=== PATIENT | female | born 1945 ===

== ENCOUNTER 2023-11-13 | Inpatient (IN) ==
[2023-11-13] MEDS: Ondansetron 4 mg VIAL 2 MG/ML 2 ml VIAL IV ONE (00:22)
[2023-11-13] MEDS: Morphine 4 MG/ML VIAL (1 ml) IV ONE ×3 (00:45→05:22)
[2023-11-13] MEDS: Acetaminophen IV 1 GM/100ML 1,000 MG/100 ML BAG IV ONE (00:45)
[2023-11-13 00:48] LABS: Hematocrit 34.3 % (35-45); Hemoglobin 11.2 g/dL (11.5-14.3); Mean Corpuscular Hgb Conc 32.6 g/dL (31-36); Mean Corpuscular Volume 88.9 fL (80-97); Mean Platelet Volume 7.7 fL (7.5-11.2); Platelet Count 417 10^3/uL (150-450); Red Blood Count 3.85 10^6/uL (3.63-4.92); Red Cell Distribution Width 14.9 % (12-17); White Blood Count 22.2 10^3/uL (3.8-11.8)
[2023-11-13 01:01] LABS: Activated Partial Thrombo Time 22.1 seconds (26.0-38.0); INR 1.1 (0.83-1.13)
[2023-11-13] MEDS: Cefepime 2 GM in Dextrose 2 GM/50 ML BAG IV ONE (01:08)
[2023-11-13 01:10] LABS: ABS Basophils 0.1 10^3/uL (0.0-0.1); ABS Lymphocytes 2.8 10^3/uL (1.0-4.8); ABS Monocytes 0.3 10^3/uL (0.0-0.9); ABS Neutrophils 18.9 10^3/uL (1.5-7.6); ABS Nucleated RBC 0.01 10^3/ul; Eosinophil % 0.2 %; Lymphocyte % 12.5 %; Nucleated Red Blood Cells % 0.1 %/100WBC (0.0-0.8)
[2023-11-13] MEDS: metroNIDAZOLE IV 500 MG/100ML 500 MG/100 ML BAG IVPB ONE (01:12)
[2023-11-13] MEDS: Lactated Ringers SEPSIS* BAG 1,430 ML IV ONE (01:14)
[2023-11-13 01:33] LABS: Albumin 3.3 g/dL (3.2-5.2); C Reactive Protein 41.23 mg/L (<8.01); Calcium 8.4 mg/dL (8.6-10.3); Creatinine, Serum 1.6 mg/dL (0.51-0.95); Globulin 3.2 g/dL (2-4); Potassium 4.4 mmol/L (3.5-5.0); Total Bilirubin 0.3 mg/dL (0.2-1.0); Total Protein 6.5 g/dL (6.4-8.9); eGFR CKD-EPI 32.4 (>60)
[2023-11-13] MEDS: Vancomycin 750 MG in NS 0.9% 250 ml 250 ML IVPB ONE (01:53)
[2023-11-13 02:16] LABS: High Sensitivity Troponin 1 Hr 19 pg/mL (<15)
[2023-11-13] MEDS: Iodixanol (CONTRAST) 320 MG/ML 100 ML SDV IV ONE (02:49)
[2023-11-13] MEDS: Famotidine IV 10 MG/ML 2 ml VIAL (20 mg) IV SLOW PU ONE (03:50)
[2023-11-13 04:04] LABS: Urine Appearance Clear; Urine Bacteria Absent /HPF (Absent); Urine Bilirubin Negative (Negative); Urine Blood 2+ (Negative); Urine Color Yellow; Urine Glucose Trace (Negative); Urine Ketones Trace (Negative); Urine Nitrite Negative (Negative); Urine Protein 2+ (>=100 mg/dL) (Negative); Urine Red Blood Cell 3+(>10/hpf) /HPF (0-Trace); Urine Specific Gravity >1.050 (1.002-1.030); Urine Squamous Epithelial Cell Present /HPF (Absent); Urine Urobilinogen Negative (Negative); Urine White Blood Cell Trace(0-5/hpf) /HPF (0-Trace)
[2023-11-13] MEDS: Lactated Ringers 1000 ml BAG 1,000 ML IV ONE (05:22)
[2023-11-13] MEDS ORDERED: Propofol 10 MG/ML 20 ML BTL ONE (06:34)
[2023-11-13] MEDS ORDERED: Succinylcholine 200 mg VIAL 20 mg/ml 10 ml VIAL (200 mg) ONE (06:34)
[2023-11-13] MEDS ORDERED: Phenylephrine IV 10 MG/ML 1 ml VIAL ONE (06:34)
[2023-11-13] MEDS ORDERED: Bupivacaine 0.25% SDV 30 ML ONE (06:37)
[2023-11-13] MEDS ORDERED: Rocuronium 50 mg VIAL 10 mg/ml 5 ml VIAL (50 mg) ONE ×2 (07:09→08:03)
[2023-11-13] MEDS ORDERED: fentaNYL 250 mcg/5 ml 50 MCG/ML 5 ml VIAL (250 MCG) ONE (07:10)
[2023-11-13] MEDS ORDERED: fentaNYL 100 mcg/2 ml 50 MCG/ML VIAL ONE (07:11)
[2023-11-13] MEDS ORDERED: Dexamethasone IV 4 MG/ML VIAL 1 ml VIAL ONE (08:30)
[2023-11-13] MEDS ORDERED: Ondansetron 4 mg VIAL 2 MG/ML 2 ml VIAL ONE (08:30)
[2023-11-13] MEDS ORDERED: Zosyn per Pharmacy NOTE FOLLOW UP SCH (11:00)
[2023-11-13] MEDS: D5W 1/2 NS 1000 ml BAG 1,000 ML IV SCH (11:40)
[2023-11-13] MEDS: ZOSYN 3.375 GM x ONE DOSE over 30 miuntes IV (11:52)
[2023-11-13] MEDS: Pantoprazole 80 mg in NS BAG 80 MG/250 ML BAG IV SCH (12:25)
[2023-11-13] MEDS: D5LR 1000 ml BAG 1,000 ML IV SCH (12:29)
[2023-11-13 12:43] LABS: ABS Lymphocytes 0.4 10^3/uL (1.0-4.8); ABS Monocytes 0.2 10^3/uL (0.0-0.9); ABS Neutrophils 5.5 10^3/uL (1.5-7.6); ABS Nucleated RBC 0.01 10^3/ul; Eosinophil % 0.1 %; Hematocrit 34.4 % (35-45); Hemoglobin 11.4 g/dL (11.5-14.3); Lymphocyte % 5.8 %; Mean Corpuscular Hemoglobin 29.8 pg (27-33); Mean Corpuscular Hgb Conc 33.3 g/dL (31-36); Mean Corpuscular Volume 89.6 fL (80-97); Mean Platelet Volume 7.9 fL (7.5-11.2); Nucleated Red Blood Cells % 0.2 %/100WBC (0.0-0.8); Platelet Count 325 10^3/uL (150-450); Red Blood Count 3.84 10^6/uL (3.63-4.92); White Blood Count 6.1 10^3/uL (3.8-11.8)
[2023-11-13 13:07] LABS: Calcium 6.8 mg/dL (8.6-10.3); Creatinine, Serum 1.36 mg/dL (0.51-0.95); Potassium 5.1 mmol/L (3.5-5.0); eGFR CKD-EPI 39.4 (>60)
[2023-11-13] MEDS ORDERED: Dextrose 50% Syringe 50 ml 25 GM/50 ML SYRINGE IV PUSH PRN (17:01)
[2023-11-13] MEDS: ZOSYN 3.375 GM Q8H per EXTENDED INFUSION IV SCH (17:15)
[2023-11-13] MEDS: Morphine 4 MG/ML VIAL (1 ml) IV PRN ×2 (17:23→19:24)
[2023-11-13] MEDS: Lactated Ringers 1000 ml BAG 1,000 ML IV SCH (17:50)
[2023-11-13] MEDS: Lactated Ringers 1000 ml BAG 500 ML IV SCH (17:56)
[2023-11-13 23:58] LABS: ABS Lymphocytes 0.7 10^3/uL (1.0-4.8); ABS Monocytes 0.2 10^3/uL (0.0-0.9); ABS Neutrophils 12.5 10^3/uL (1.5-7.6); ABS Nucleated RBC 0.01 10^3/ul; Hematocrit 38.4 % (35-45); Hemoglobin 12.7 g/dL (11.5-14.3); Lymphocyte % 5.2 %; Mean Corpuscular Hemoglobin 29.5 pg (27-33); Mean Corpuscular Hgb Conc 33.1 g/dL (31-36); Mean Corpuscular Volume 89.4 fL (80-97); Mean Platelet Volume 8.4 fL (7.5-11.2); Nucleated Red Blood Cells % 0.1 %/100WBC (0.0-0.8); Platelet Count 324 10^3/uL (150-450); White Blood Count 13.5 10^3/uL (3.8-11.8)
[2023-11-14 00:31] LABS: Albumin 2.5 g/dL (3.2-5.2); C Reactive Protein 246.21 mg/L (<8.01); Calcium 7.7 mg/dL (8.6-10.3); Creatinine, Serum 1.79 mg/dL (0.51-0.95); Globulin 2.5 g/dL (2-4); Magnesium 1.5 mg/dL (1.9-2.7); Phosphorus 4.6 mg/dL (2.5-5.0); Potassium 6.2 mmol/L (3.5-5.0); Total Bilirubin 0.5 mg/dL (0.2-1.0); eGFR CKD-EPI 28.3 (>60)
[2023-11-14] MEDS: D5W 1/2 NS 1000 ml BAG 1,000 ML IV ONE (00:39)
[2023-11-14] MEDS: Dextrose 50% Syringe 50 ml 25 GM/50 ML SYRINGE IV PUSH ONE (01:14)
[2023-11-14] MEDS: Magnesium Sulf 4 GM/100 ML IV 4,000 MG/100 ML BAG IVPB ONE (01:18)
[2023-11-14] MEDS: Calcium Gluconate 1 GM/10 ML VIAL (in Pyxis) IV PUSH ONE (01:19)
[2023-11-14 02:40] LABS: PCO2 Arterial 46 mmHg (35-45); PO2 Arterial 134 mmHg (80-100)
[2023-11-14 03:45] LABS: Calcium 7.5 mg/dL (8.6-10.3); Creatinine, Serum 1.85 mg/dL (0.51-0.95); Potassium 5.8 mmol/L (3.5-5.0); eGFR CKD-EPI 27.2 (>60)
[2023-11-14] MEDS ORDERED: NORMOSOL-R pH 7.4 1000 mL BAG 1,000 ML IV SCH (04:00)
[2023-11-14] MEDS: Norepinephrine 4 MG/250mL D5W 4,000 MCG/250 ML BAG IV SCH (04:35)
[2023-11-14] MEDS: Albumin Human 25% 25 GM/100 ML BTL IV ONE ×2 (08:39→08:48)
[2023-11-14] MEDS: Furosemide 40 mg/4 ml IV VIAL IV ONE (08:48)
[2023-11-14 11:21] LABS: Hematocrit 27.5 % (35-45); Hemoglobin 9.1 g/dL (11.5-14.3); Mean Corpuscular Hemoglobin 29.8 pg (27-33); Mean Corpuscular Hgb Conc 33.2 g/dL (31-36); Mean Corpuscular Volume 89.7 fL (80-97); Mean Platelet Volume 8.4 fL (7.5-11.2); Platelet Count 217 10^3/uL (150-450); Red Blood Count 3.07 10^6/uL (3.63-4.92); White Blood Count 12.9 10^3/uL (3.8-11.8)
[2023-11-14 12:01] LABS: Albumin 2.8 g/dL (3.2-5.2); Albumin/Globulin Ratio 1.6 (1-3); Calcium 7.6 mg/dL (8.6-10.3); Creatinine, Serum 1.95 mg/dL (0.51-0.95); Globulin 1.8 g/dL (2-4); Magnesium 2.7 mg/dL (1.9-2.7); Potassium 5.3 mmol/L (3.5-5.0); Total Bilirubin 0.5 mg/dL (0.2-1.0); Total Protein 4.6 g/dL (6.4-8.9); eGFR CKD-EPI 25.6 (>60)
[2023-11-14 12:16] LABS: ABS Lymphocytes 0.7 10^3/uL (1.0-4.8); ABS Monocytes 0.4 10^3/uL (0.0-0.9); ABS Neutrophils 11.9 10^3/uL (1.5-7.6); ABS Nucleated RBC 0.01 10^3/ul; Lymphocyte % 5.4 %; Nucleated Red Blood Cells % 0.1 %/100WBC (0.0-0.8); RBC Morphology Normal (Normal)
[2023-11-14 14:16] LABS: ABS Eosinophils 0.1 10^3/uL (0.0-0.5); ABS Lymphocytes 0.5 10^3/uL (1.0-4.8); ABS Monocytes 0.3 10^3/uL (0.0-0.9); ABS Neutrophils 11.9 10^3/uL (1.5-7.6); ABS Nucleated RBC 0.01 10^3/ul; Eosinophil % 0.6 %; Hematocrit 27.4 % (35-45); Hemoglobin 9.2 g/dL (11.5-14.3); Lymphocyte % 4.1 %; Mean Corpuscular Hemoglobin 29.5 pg (27-33); Mean Corpuscular Hgb Conc 33.6 g/dL (31-36); Mean Corpuscular Volume 87.9 fL (80-97); Mean Platelet Volume 8.4 fL (7.5-11.2); Nucleated Red Blood Cells % 0.1 %/100WBC (0.0-0.8); Platelet Count 226 10^3/uL (150-450); Red Blood Count 3.12 10^6/uL (3.63-4.92); Red Cell Distribution Width 14.8 % (12-17); White Blood Count 12.8 10^3/uL (3.8-11.8)
[2023-11-14] MEDS: Heparin 5000 UNITS/ML 1 mL VIAL SUBCUT SCH (14:29)
[2023-11-14] MEDS: ZOSYN 3.375 GM Q8H per EXTENDED INFUSION IV SCH (20:07)
[2023-11-15 04:27] LABS: Hematocrit 25.2 % (35-45); Hemoglobin 8.6 g/dL (11.5-14.3); Mean Corpuscular Hemoglobin 29.6 pg (27-33); Mean Corpuscular Volume 87.3 fL (80-97); Mean Platelet Volume 8.1 fL (7.5-11.2); Platelet Count 208 10^3/uL (150-450); Red Blood Count 2.89 10^6/uL (3.63-4.92); Red Cell Distribution Width 15.1 % (12-17); White Blood Count 11.2 10^3/uL (3.8-11.8)
[2023-11-15 04:44] LABS: Albumin 2.5 g/dL (3.2-5.2); Albumin/Globulin Ratio 1.2 (1-3); Calcium 7.8 mg/dL (8.6-10.3); Creatinine, Serum 2.01 mg/dL (0.51-0.95); Globulin 2.1 g/dL (2-4); Magnesium 2.1 mg/dL (1.9-2.7); Total Bilirubin 0.5 mg/dL (0.2-1.0); Total Protein 4.6 g/dL (6.4-8.9); eGFR CKD-EPI 24.6 (>60)
[2023-11-15 06:06] LABS: ABS Lymphocytes 0.6 10^3/uL (1.0-4.8); ABS Monocytes 0.3 10^3/uL (0.0-0.9); ABS Neutrophils 10.3 10^3/uL (1.5-7.6); ABS Nucleated RBC 0.01 10^3/ul; Eosinophil % 0.1 %; Nucleated Red Blood Cells % 0.1 %/100WBC (0.0-0.8); RBC Morphology Normal (Normal)
[2023-11-15] MEDS ORDERED: Albuterol 0.5% CONC CONTINUOUS NEB.SOL 5 mg/ml 20 ml BOT INH SCH (08:00)
[2023-11-15] MEDS: Albuterol 2.5mg/3 ml (0.083%) NEB.SOLN INH ONE (08:34)
[2023-11-15] MEDS: Lactated Ringers 1000 ml BAG 1,000 ML IV SCH (10:20)
[2023-11-15] MEDS: Albumin Human 25% 25 GM/100 ML BTL IV ONE (10:21)
[2023-11-15] MEDS: Albuterol 2.5mg/3 ml (0.083%) NEB.SOLN INH PRN (15:20)
[2023-11-15] MEDS: Acetaminophen IV 1 GM/100ML 1,000 MG/100 ML BAG IV PRN (16:57)
[2023-11-15] MEDS: Pantoprazole VIAL 40 MG VIAL IV SCH (19:52)
[2023-11-15 23:03] LABS: Venous Bicarbonate HCO3 24.5 mmol/L (24-28)
[2023-11-16 04:54] LABS: Hematocrit 23.1 % (35-45); Mean Corpuscular Hemoglobin 30.1 pg (27-33); Mean Corpuscular Hgb Conc 34.5 g/dL (31-36); Mean Corpuscular Volume 87.2 fL (80-97); Mean Platelet Volume 8.4 fL (7.5-11.2); Platelet Count 184 10^3/uL (150-450); Red Blood Count 2.65 10^6/uL (3.63-4.92); White Blood Count 10.4 10^3/uL (3.8-11.8)
[2023-11-16 05:27] LABS: ABS Basophils 0.1 10^3/uL (0.0-0.1); ABS Lymphocytes 0.5 10^3/uL (1.0-4.8); ABS Monocytes 0.2 10^3/uL (0.0-0.9); ABS Neutrophils 9.6 10^3/uL (1.5-7.6); ABS Nucleated RBC 0.03 10^3/ul; Dohle Bodies Present; Eosinophil % 0.2 %; Lymphocyte % 4.6 %; Nucleated Red Blood Cells % 0.3 %/100WBC (0.0-0.8); RBC Morphology Normal (Normal)
[2023-11-16 05:39] LABS: Albumin 2.5 g/dL (3.2-5.2); Albumin/Globulin Ratio 1.3 (1-3); Calcium 7.5 mg/dL (8.6-10.3); Creatinine, Serum 1.34 mg/dL (0.51-0.95); Magnesium 1.9 mg/dL (1.9-2.7); Potassium 4.4 mmol/L (3.5-5.0); Total Bilirubin 0.4 mg/dL (0.2-1.0); Total Protein 4.5 g/dL (6.4-8.9); eGFR CKD-EPI 40.1 (>60)
[2023-11-16] MEDS: Lactated Ringers 1000 ml BAG 1,000 ML IV SCH (09:35)
[2023-11-16] MEDS ORDERED: Sulfur Hexaflouride MICROSPHR 25 MG VIAL ONE (13:32)
[2023-11-16] MEDS: ZOSYN 3.375 GM Q8H per EXTENDED INFUSION IV SCH (15:57)
[2023-11-16] MEDS: Furosemide 20 mg/2 ml IV VIAL IV ONE (17:37)
[2023-11-16 18:50] LABS: Albumin 2.8 g/dL (3.2-5.2); Albumin/Globulin Ratio 1.2 (1-3); Creatinine, Serum 1.13 mg/dL (0.51-0.95); Globulin 2.3 g/dL (2-4); Potassium 4.5 mmol/L (3.5-5.0); Total Bilirubin 0.5 mg/dL (0.2-1.0); Total Protein 5.1 g/dL (6.4-8.9); eGFR CKD-EPI 49.2 (>60)
[2023-11-17 04:47] LABS: Hematocrit 29.7 % (35-45); Hemoglobin 9.6 g/dL (11.5-14.3); Mean Corpuscular Hemoglobin 28.7 pg (27-33); Mean Corpuscular Hgb Conc 32.4 g/dL (31-36); Mean Corpuscular Volume 88.4 fL (80-97); Mean Platelet Volume 8.7 fL (7.5-11.2); Platelet Count 204 10^3/uL (150-450); Red Blood Count 3.36 10^6/uL (3.63-4.92); Red Cell Distribution Width 15.3 % (12-17); White Blood Count 18.1 10^3/uL (3.8-11.8)
[2023-11-17] MEDS: Benzocaine/Butamben/Tetracain (CETACAINE - SINGLE USE) 5 gm TOPICAL ONE (05:10)
[2023-11-17 05:26] LABS: Blood Urea Nitrogen 30 mg/dL (6-24); CO2 Carbon Dioxide 23 mmol/L (22-32); Chloride 104 mmol/L (101-111); Creatinine, Serum 1.31 mg/dL (0.51-0.95); Glucose 69 mg/dL (70-100); Magnesium 1.8 mg/dL (1.9-2.7); Sodium 138 mmol/L (135-145); eGFR CKD-EPI 41.2 (>60)
[2023-11-17 05:28] LABS: Anion Gap 11 mmol/L (2-16)
[2023-11-17 06:16] LABS: ABS Basophils 0.1 10^3/uL (0.0-0.1); ABS Lymphocytes 1.2 10^3/uL (1.0-4.8); ABS Monocytes 0.9 10^3/uL (0.0-0.9); ABS Neutrophils 15.9 10^3/uL (1.5-7.6); ABS Nucleated RBC 0.05 10^3/ul; Eosinophil % 0.2 %; Lymphocyte % 6.4 %; Nucleated Red Blood Cells % 0.3 %/100WBC (0.0-0.8)
[2023-11-17 06:17] LABS: Anisocytosis 1+; Schistocytes 1+; Tear Drop Cells 1+
[2023-11-17] MEDS: Magnesium Sulfate 2 gm BAG 2 GM/50 ML BAG IVPB ONE (06:33)
[2023-11-17] MEDS: Tiotropium Brom/Olodaterol MDI (ACUTE) INH SCH (07:14)
[2023-11-17] MEDS: Magnesium Sulfate IV 1GM/100ML 1 GM/100 ML BAG IV ONE (08:20)
[2023-11-17] MEDS: PPN (PERIPHERAL) 24 HR with D10W 1000 ml BAG 1,000 ML, Amino Acid Infusion 10% 850 ML, ... IV SCH (17:02)
[2023-11-17 20:20] LABS: Urine Appearance Clear; Urine Bilirubin Negative (Negative); Urine Blood 1+ (Negative); Urine Color Light-Yellow; Urine Glucose Negative (Negative); Urine Ketones 2+ (Negative); Urine Nitrite Negative (Negative); Urine Protein Trace (Negative); Urine Specific Gravity 1.024 (1.002-1.030); Urine Urobilinogen Negative (Negative)
[2023-11-17 20:24] LABS: Urine Bacteria Absent /HPF (Absent); Urine Red Blood Cell 3+(>10/hpf) /HPF (0-Trace); Urine Squamous Epithelial Cell Present /HPF (Absent); Urine White Blood Cell Trace(0-5/hpf) /HPF (0-Trace)
[2023-11-18] MEDS ORDERED: Dextrose 50% Syringe 50 ml 25 GM/50 ML SYRINGE IV PUSH PRN ×2 (01:21→10:02)
[2023-11-18 05:20] LABS: Hematocrit 26.8 % (35-45); Mean Corpuscular Hemoglobin 29.4 pg (27-33); Mean Corpuscular Hgb Conc 33.4 g/dL (31-36); Mean Corpuscular Volume 88.2 fL (80-97); Mean Platelet Volume 8.4 fL (7.5-11.2); Platelet Count 158 10^3/uL (150-450); Red Blood Count 3.05 10^6/uL (3.63-4.92); Red Cell Distribution Width 15.5 % (12-17); White Blood Count 14.5 10^3/uL (3.8-11.8)
[2023-11-18 06:02] LABS: ABS Eosinophils 0.1 10^3/uL (0.0-0.5); ABS Lymphocytes 1.1 10^3/uL (1.0-4.8); ABS Monocytes 1.5 10^3/uL (0.0-0.9); ABS Neutrophils 11.5 10^3/uL (1.5-7.6); ABS Nucleated RBC 0.02 10^3/ul; Eosinophil % 0.6 %; Lymphocyte % 7.4 %; Nucleated Red Blood Cells % 0.2 %/100WBC (0.0-0.8); RBC Morphology Normal (Normal)
[2023-11-18 06:04] LABS: ALT 8 U/L (7-52); Albumin 2.5 g/dL (3.2-5.2); Alkaline Phosphatase 53 U/L (35-149); Anion Gap 5 mmol/L (2-16); Blood Urea Nitrogen 31 mg/dL (6-24); CO2 Carbon Dioxide 29 mmol/L (22-32); Calcium 7.9 mg/dL (8.6-10.3); Chloride 107 mmol/L (101-111); Cholesterol 86 mg/dL; Creatinine, Serum 1.05 mg/dL (0.51-0.95); Globulin 2.4 g/dL (2-4); Glucose 202 mg/dL (70-100); Magnesium 2.2 mg/dL (1.9-2.7); Prealbumin 6 mg/dL (18-38); Sodium 141 mmol/L (135-145); Total Bilirubin 0.4 mg/dL (0.2-1.0); Total Protein 4.9 g/dL (6.4-8.9); Triglycerides 217 mg/dL; eGFR CKD-EPI 53.7 (>60)
[2023-11-18] MEDS: Labetalol IV 5 MG/ML 20 ml VIAL IV PUSH ONE (07:14)
[2023-11-18 11:54] LABS: Potassium, Whole Blood 3.7 mmol/L (3.4-4.5)
[2023-11-18 12:28] LABS: Calcium 7.7 mg/dL (8.6-10.3); Creatinine, Serum 1.01 mg/dL (0.51-0.95); Phosphorus 2.3 mg/dL (2.5-5.0); Potassium 4.1 mmol/L (3.5-5.0); eGFR CKD-EPI 56.3 (>60)
[2023-11-18] MEDS: Sodium Phosphate IV 30 MMOL in NS 0.9% 250 ml 250 ML IV ONE (13:49)
[2023-11-18] MEDS: Labetalol IV 5 MG/ML 20 ml VIAL IV PUSH PRN (17:11)
[2023-11-18] MEDS: Albuterol/Ipratropium NEB.SOL (2.5/0.5 MG) 3 ML NEB.SOLN INH PRN (23:54)
[2023-11-19 05:40] LABS: Hematocrit 26.7 % (35-45); Hemoglobin 8.9 g/dL (11.5-14.3); Mean Corpuscular Hemoglobin 29.7 pg (27-33); Mean Corpuscular Hgb Conc 33.4 g/dL (31-36); Mean Corpuscular Volume 88.9 fL (80-97); Mean Platelet Volume 9.4 fL (7.5-11.2); Platelet Count 140 10^3/uL (150-450); Red Blood Count 3.01 10^6/uL (3.63-4.92); Red Cell Distribution Width 15.6 % (12-17); White Blood Count 10.8 10^3/uL (3.8-11.8)
[2023-11-19 06:31] LABS: ALT 7 U/L (7-52); Albumin 2.3 g/dL (3.2-5.2); Albumin/Globulin Ratio 0.9 (1-3); Alkaline Phosphatase 53 U/L (35-149); Anion Gap 5 mmol/L (2-16); Blood Urea Nitrogen 33 mg/dL (6-24); CO2 Carbon Dioxide 28 mmol/L (22-32); Calcium 7.8 mg/dL (8.6-10.3); Chloride 109 mmol/L (101-111); Cholesterol 78 mg/dL; Globulin 2.5 g/dL (2-4); Glucose 170 mg/dL (70-100); Prealbumin 7 mg/dL (18-38); Sodium 142 mmol/L (135-145); Total Bilirubin 0.3 mg/dL (0.2-1.0); Total Protein 4.8 g/dL (6.4-8.9); Triglycerides 178 mg/dL; eGFR CKD-EPI 64.6 (>60)
[2023-11-19 06:33] LABS: ABS Eosinophils 0.3 10^3/uL (0.0-0.5); ABS Lymphocytes 1.1 10^3/uL (1.0-4.8); ABS Monocytes 1.8 10^3/uL (0.0-0.9); ABS Neutrophils 7.6 10^3/uL (1.5-7.6); ABS Nucleated RBC 0.04 10^3/ul; Anisocytosis 1+; Eosinophil % 2.5 %; Hypochromasia 2+; Lymphocyte % 10.5 %; Nucleated Red Blood Cells % 0.4 %/100WBC (0.0-0.8)
[2023-11-19 08:51] LABS: Magnesium 1.9 mg/dL (1.9-2.7); Phosphorus 3.4 mg/dL (2.5-5.0); Potassium Redraw 4.3 mmol/L (3.5-5.0)
[2023-11-20 06:12] LABS: Hemoglobin 8.6 g/dL (11.5-14.3); Mean Corpuscular Hemoglobin 29.2 pg (27-33); Mean Corpuscular Hgb Conc 32.9 g/dL (31-36); Mean Corpuscular Volume 88.5 fL (80-97); Mean Platelet Volume 9.3 fL (7.5-11.2); Platelet Count 169 10^3/uL (150-450); Red Blood Count 2.94 10^6/uL (3.63-4.92); Red Cell Distribution Width 15.6 % (12-17); White Blood Count 12.8 10^3/uL (3.8-11.8)
[2023-11-20 06:37] LABS: Calcium 7.7 mg/dL (8.6-10.3); Creatinine, Serum 0.81 mg/dL (0.51-0.95); Magnesium 1.9 mg/dL (1.9-2.7); Potassium 4.7 mmol/L (3.5-5.0); eGFR CKD-EPI 73.3 (>60)
[2023-11-20] MEDS: TPN 24 HR with Dextrose 50% Water 500 ML, Amino Acid Infusion 10% 850 ML, Sterile Water... CENT\\PICC SCH (16:49)
[2023-11-21 07:38] LABS: Albumin 2.4 g/dL (3.2-5.2); Albumin/Globulin Ratio 0.9 (1-3); Calcium 7.9 mg/dL (8.6-10.3); Creatinine, Serum 0.76 mg/dL (0.51-0.95); Globulin 2.6 g/dL (2-4); Magnesium 1.8 mg/dL (1.9-2.7); Phosphorus 2.8 mg/dL (2.5-5.0); Potassium 4.9 mmol/L (3.5-5.0); Total Bilirubin 0.2 mg/dL (0.2-1.0); eGFR CKD-EPI 79.2 (>60)
[2023-11-21 08:22] LABS: Hematocrit 26.1 % (35-45); Hemoglobin 8.3 g/dL (11.5-14.3); Mean Corpuscular Hemoglobin 28.4 pg (27-33); Mean Corpuscular Hgb Conc 31.9 g/dL (31-36); Mean Corpuscular Volume 89.2 fL (80-97); Mean Platelet Volume 9.9 fL (7.5-11.2); Platelet Count 231 10^3/uL (150-450); Red Blood Count 2.92 10^6/uL (3.63-4.92); Red Cell Distribution Width 15.8 % (12-17); White Blood Count 13.5 10^3/uL (3.8-11.8)
[2023-11-21 08:44] LABS: ABS Eosinophils 0.3 10^3/uL (0.0-0.5); ABS Lymphocytes 1.3 10^3/uL (1.0-4.8); ABS Monocytes 2.1 10^3/uL (0.0-0.9); ABS Neutrophils 9.8 10^3/uL (1.5-7.6); ABS Nucleated RBC 0.06 10^3/ul; Anisocytosis 1+; Eosinophil % 1.9 %; Hypochromasia 1+; Lymphocyte % 9.8 %; Nucleated Red Blood Cells % 0.5 %/100WBC (0.0-0.8); Polychromasia 1+
[2023-11-21] MEDS: Magnesium Sulfate IV 1GM/100ML 1 GM/100 ML BAG IV ONE (09:07)
[2023-11-21] MEDS: Furosemide 20 mg/2 ml IV VIAL IV SLOW PU ONE (12:13)
[2023-11-22 06:12] LABS: Calcium 8.5 mg/dL (8.6-10.3)
[2023-11-22 06:13] LABS: Blood Urea Nitrogen 31 mg/dL (6-24); CO2 Carbon Dioxide 24 mmol/L (22-32); Chloride 108 mmol/L (101-111); Creatinine, Serum 0.81 mg/dL (0.51-0.95); Glucose 963 mg/dL (70-100); Potassium 7.1 mmol/L (3.5-5.0); Sodium 131 mmol/L (135-145); eGFR CKD-EPI 73.3 (>60)
[2023-11-22] MEDS: Insulin GLARGINE 100 un/ml 10 ml VIAL SUBCUT SCH (09:02)
[2023-11-22 12:07] LABS: Hemoglobin 8.1 g/dL (11.5-14.3); Mean Corpuscular Hgb Conc 32.5 g/dL (31-36); Mean Corpuscular Volume 89.4 fL (80-97); Mean Platelet Volume 9.3 fL (7.5-11.2); Platelet Count 343 10^3/uL (150-450); Red Blood Count 2.79 10^6/uL (3.63-4.92); Red Cell Distribution Width 15.5 % (12-17); White Blood Count 15.5 10^3/uL (3.8-11.8)
[2023-11-22 12:35] LABS: ABS Basophils 0.1 10^3/uL (0.0-0.1); ABS Eosinophils 0.2 10^3/uL (0.0-0.5); ABS Lymphocytes 1.2 10^3/uL (1.0-4.8); ABS Neutrophils 11.9 10^3/uL (1.5-7.6); ABS Nucleated RBC 0.09 10^3/ul; Eosinophil % 1.6 %; Nucleated Red Blood Cells % 0.6 %/100WBC (0.0-0.8)
[2023-11-22 12:36] LABS: Anisocytosis 1+; Polychromasia 1+
[2023-11-22 12:54] LABS: Calcium 8.1 mg/dL (8.6-10.3); Creatinine, Serum 0.84 mg/dL (0.51-0.95); Potassium 5.3 mmol/L (3.5-5.0); eGFR CKD-EPI 70.2 (>60)
[2023-11-22] MEDS: Furosemide 40 mg/4 ml IV VIAL IV SLOW PU ONE ×2 (14:05→19:38)
[2023-11-22 15:16] LABS: C Reactive Protein 65.61 mg/L (<8.01)
[2023-11-23 06:37] LABS: Hematocrit 22.7 % (35-45); Hemoglobin 7.4 g/dL (11.5-14.3); Mean Corpuscular Hgb Conc 32.5 g/dL (31-36); Mean Corpuscular Volume 89.5 fL (80-97); Mean Platelet Volume 9.1 fL (7.5-11.2); Platelet Count 377 10^3/uL (150-450); Red Blood Count 2.54 10^6/uL (3.63-4.92); Red Cell Distribution Width 15.4 % (12-17); White Blood Count 14.9 10^3/uL (3.8-11.8)
[2023-11-23 07:02] LABS: Calcium 7.9 mg/dL (8.6-10.3); Creatinine, Serum 0.96 mg/dL (0.51-0.95); Magnesium 1.6 mg/dL (1.9-2.7); eGFR CKD-EPI 59.8 (>60)
[2023-11-23] MEDS: Magnesium Sulfate 2 gm BAG 2 GM/50 ML BAG IVPB ONE (07:49)
[2023-11-23 08:51] LABS: ABS Basophils 0.1 10^3/uL (0.0-0.1); ABS Eosinophils 0.3 10^3/uL (0.0-0.5); ABS Lymphocytes 1.1 10^3/uL (1.0-4.8); ABS Neutrophils 11.5 10^3/uL (1.5-7.6); ABS Nucleated RBC 0.04 10^3/ul; Eosinophil % 1.7 %; Lymphocyte % 7.7 %; Nucleated Red Blood Cells % 0.2 %/100WBC (0.0-0.8); RBC Morphology Normal (Normal)
[2023-11-23] MEDS: Magnesium Sulfate IV 1GM/100ML 1 GM/100 ML BAG IV ONE (10:36)
[2023-11-24] MEDS: Insulin GLARGINE 100 un/ml 10 ml VIAL SUBCUT SCH (09:23)
[2023-11-24 09:30] LABS: Hematocrit 22.4 % (35-45); Hemoglobin 7.4 g/dL (11.5-14.3); Mean Corpuscular Hemoglobin 29.3 pg (27-33); Mean Corpuscular Hgb Conc 32.8 g/dL (31-36); Mean Corpuscular Volume 89.3 fL (80-97); Mean Platelet Volume 8.6 fL (7.5-11.2); Platelet Count 481 10^3/uL (150-450); Red Blood Count 2.51 10^6/uL (3.63-4.92); Red Cell Distribution Width 15.8 % (12-17); White Blood Count 14.4 10^3/uL (3.8-11.8)
[2023-11-24 10:30] LABS: ABS Basophils 0.1 10^3/uL (0.0-0.1); ABS Eosinophils 0.1 10^3/uL (0.0-0.5); ABS Lymphocytes 1.1 10^3/uL (1.0-4.8); ABS Nucleated RBC 0.02 10^3/ul; Eosinophil % 0.8 %; Lymphocyte % 7.5 %; Nucleated Red Blood Cells % 0.2 %/100WBC (0.0-0.8)
[2023-11-24 10:48] LABS: Calcium 7.8 mg/dL (8.6-10.3); Creatinine, Serum 0.78 mg/dL (0.51-0.95); Magnesium 2.2 mg/dL (1.9-2.7); Potassium 5.6 mmol/L (3.5-5.0); eGFR CKD-EPI 76.7 (>60)
[2023-11-24] MEDS: Albuterol 2.5mg/3 ml (0.083%) NEB.SOLN INH PRN (14:09)
[2023-11-24] MEDS: SODIUM ZIRCONIUM CYCLOSILICATE 10 GM PACKET PO SCH (15:09)
[2023-11-25 06:52] LABS: Calcium 7.6 mg/dL (8.6-10.3); Creatinine, Serum 0.73 mg/dL (0.51-0.95); Potassium 5.5 mmol/L (3.5-5.0); eGFR CKD-EPI 83.1 (>60)
[2023-11-25 06:55] LABS: Hematocrit 21.7 % (35-45); Hemoglobin 7.1 g/dL (11.5-14.3); Mean Corpuscular Hemoglobin 29.5 pg (27-33); Mean Corpuscular Hgb Conc 32.6 g/dL (31-36); Mean Corpuscular Volume 90.6 fL (80-97); Mean Platelet Volume 9.2 fL (7.5-11.2); Platelet Count 519 10^3/uL (150-450); Red Blood Count 2.39 10^6/uL (3.63-4.92); White Blood Count 12.7 10^3/uL (3.8-11.8)
[2023-11-25 08:17] LABS: ABS Eosinophils 0.1 10^3/uL (0.0-0.5); ABS Lymphocytes 0.3 10^3/uL (1.0-4.8); ABS Monocytes 1.7 10^3/uL (0.0-0.9); ABS Neutrophils 10.6 10^3/uL (1.5-7.6); ABS Nucleated RBC 0.02 10^3/ul; Anisocytosis 1+; Eosinophil % 0.6 %; Nucleated Red Blood Cells % 0.2 %/100WBC (0.0-0.8); Polychromasia 1+
[2023-11-25] MEDS: Furosemide 40 mg/4 ml IV VIAL IV ONE (11:49)
[2023-11-26 07:35] LABS: Hematocrit 22.9 % (35-45); Hemoglobin 7.4 g/dL (11.5-14.3); Mean Corpuscular Hemoglobin 29.3 pg (27-33); Mean Corpuscular Hgb Conc 32.1 g/dL (31-36); Mean Corpuscular Volume 91.1 fL (80-97); Mean Platelet Volume 9.1 fL (7.5-11.2); Platelet Count 634 10^3/uL (150-450); Red Blood Count 2.51 10^6/uL (3.63-4.92); Red Cell Distribution Width 16.9 % (12-17)
[2023-11-26 08:00] LABS: Creatinine, Serum 0.83 mg/dL (0.51-0.95); Potassium 5.6 mmol/L (3.5-5.0); eGFR CKD-EPI 71.2 (>60)
[2023-11-26] MEDS: Albuterol/Ipratropium NEB.SOL (2.5/0.5 MG) 3 ML NEB.SOLN INH PRN (08:44)
[2023-11-26] MEDS: Furosemide 40 mg/4 ml IV VIAL IV SLOW PU ONE (09:30)
[2023-11-26 09:49] LABS: Venous Bicarbonate HCO3 29.7 mmol/L (24-28)
[2023-11-26] MEDS: SODIUM ZIRCONIUM CYCLOSILICATE 10 GM PACKET PO SCH (10:42)
[2023-11-26 13:17] LABS: Albumin 2.7 g/dL (3.2-5.2); Albumin/Globulin Ratio 0.9 (1-3); Globulin 3.1 g/dL (2-4); Indirect Bilirubin 0.2 mg/dL (0.3-1.0); Total Bilirubin 0.2 mg/dL (0.2-1.0); Total Protein 5.8 g/dL (6.4-8.9)
[2023-11-26 20:18] LABS: Body Fluid Appearance Cloudy; Body Fluid Color Yellow; Body Fluid Source Pleural Fluid
[2023-11-26 20:24] LABS: Body Fluid Total Nucleated 3212 /mcL
[2023-11-26 21:03] LABS: Body Fluid Mono 33 %; Body Fluid Total Cells Counted 200
[2023-11-27 00:05] LABS: Calcium 7.6 mg/dL (8.6-10.3); Creatinine, Serum 0.73 mg/dL (0.51-0.95); eGFR CKD-EPI 83.1 (>60)
[2023-11-27] MEDS: SODIUM ZIRCONIUM CYCLOSILICATE 10 GM PACKET PO SCH (00:43)
[2023-11-27] MEDS ORDERED: hydrALAZINE 20 mg/ml 1 ML Vial IV IV SLOW PU PRN (02:59)
[2023-11-27] MEDS: NS 0.9% 1000 ml BAG 1,000 ML IV ONE (03:45)
[2023-11-27 04:54] LABS: Hematocrit 19.7 % (35-45); Hemoglobin 6.4 g/dL (11.5-14.3); Mean Corpuscular Hemoglobin 29.5 pg (27-33); Mean Corpuscular Hgb Conc 32.6 g/dL (31-36); Mean Corpuscular Volume 90.6 fL (80-97); Mean Platelet Volume 8.5 fL (7.5-11.2); Platelet Count 448 10^3/uL (150-450); Red Blood Count 2.18 10^6/uL (3.63-4.92); Red Cell Distribution Width 16.9 % (12-17)
[2023-11-27 05:24] LABS: ABS Eosinophils 0.1 10^3/uL (0.0-0.5); ABS Lymphocytes 0.6 10^3/uL (1.0-4.8); ABS Monocytes 1.6 10^3/uL (0.0-0.9); ABS Neutrophils 5.6 10^3/uL (1.5-7.6); ABS Nucleated RBC 0.01 10^3/ul; Eosinophil % 1.1 %; Lymphocyte % 8.1 %; Nucleated Red Blood Cells % 0.1 %/100WBC (0.0-0.8)
[2023-11-27 05:25] LABS: AST 19 U/L (13-39)
[2023-11-27 05:26] LABS: ALT 9 U/L (7-52); Albumin 2.2 g/dL (3.2-5.2); Albumin/Globulin Ratio 0.8 (1-3); Alkaline Phosphatase 49 U/L (35-149); Blood Urea Nitrogen 19 mg/dL (6-24); Calcium 7.2 mg/dL (8.6-10.3); Creatinine, Serum 0.69 mg/dL (0.51-0.95); Globulin 2.6 g/dL (2-4); Glucose 84 mg/dL (70-100); Magnesium 1.8 mg/dL (1.9-2.7); Total Bilirubin 0.3 mg/dL (0.2-1.0); Total Protein 4.8 g/dL (6.4-8.9); eGFR CKD-EPI 87.7 (>60)
[2023-11-27 05:28] LABS: Anion Gap 2 mmol/L (2-16); CO2 Carbon Dioxide 32 mmol/L (22-32); Chloride 106 mmol/L (101-111); Sodium 140 mmol/L (135-145)
[2023-11-27 06:21] LABS: Hematocrit 21.2 % (35-45); Hemoglobin 7.2 g/dL (11.5-14.3)
[2023-11-27 11:41] LABS: Mean Platelet Volume 9.8 fL (7.5-11.2); Platelet Count 564 10^3/uL (150-450)
[2023-11-27 11:46] LABS: White Blood Count 10.1 10^3/uL (3.8-11.8)
[2023-11-27 12:35] LABS: .Transferrin 135 mg/dL (203-362); Total Iron Binding Capacity 189 mcg/dL (250-450)
[2023-11-27 13:11] LABS: Hematocrit 21.7 % (35-45); Hemoglobin 7.2 g/dL (11.5-14.3)
[2023-11-27 13:58] LABS: % Iron Saturation 11 % (15-55); .Transferrin 153 mg/dL (203-362); Iron 23 ug/dL (50-212); Total Iron Binding Capacity 214 mcg/dL (250-450); Unsaturated Iron Binding 191 ug/dL
[2023-11-27] MEDS: Furosemide 40 mg/4 ml IV VIAL IV SLOW PU ONE ×2 (15:37→20:21)
[2023-11-27] MEDS: TPN 24 HR with Dextrose 50% Water 500 ML, Amino Acid Infusion 10% 850 ML, Sterile Water... CENT\\PICC SCH (16:58)
[2023-11-27] MEDS ORDERED: Furosemide 40 mg/4 ml IV VIAL IV SLOW PU ONE (22:00)
[2023-11-28 04:51] LABS: Hematocrit 23.4 % (35-45); Hemoglobin 7.7 g/dL (11.5-14.3); Mean Corpuscular Hemoglobin 32.3 pg (27-33); Mean Platelet Volume 9.1 fL (7.5-11.2); Platelet Count 613 10^3/uL (150-450); Red Blood Count 2.39 10^6/uL (3.63-4.92); Red Cell Distribution Width 17.4 % (12-17); White Blood Count 10.2 10^3/uL (3.8-11.8)
[2023-11-28 05:08] LABS: ABS Basophils 0.1 10^3/uL (0.0-0.1); ABS Eosinophils 0.1 10^3/uL (0.0-0.5); ABS Lymphocytes 1.1 10^3/uL (1.0-4.8); ABS Monocytes 2.6 10^3/uL (0.0-0.9); ABS Neutrophils 6.2 10^3/uL (1.5-7.6); ABS Nucleated RBC 0.02 10^3/ul; Eosinophil % 1.2 %; Nucleated Red Blood Cells % 0.2 %/100WBC (0.0-0.8)
[2023-11-28 05:43] LABS: Magnesium 2.1 mg/dL (1.9-2.7)
[2023-11-28 05:44] LABS: Albumin 2.6 g/dL (3.2-5.2); Albumin/Globulin Ratio 0.9 (1-3); Alkaline Phosphatase 57 U/L (35-149); Glucose 869 mg/dL (70-100); Phosphorus 4.4 mg/dL (2.5-5.0); Total Bilirubin < 0.1 mg/dL (0.2-1.0); Total Protein 5.6 g/dL (6.4-8.9)
[2023-11-28 05:46] LABS: ALT 9 U/L (7-52); AST 20 U/L (13-39); Anion Gap 2 mmol/L (2-16); Blood Urea Nitrogen 18 mg/dL (6-24); CO2 Carbon Dioxide 36 mmol/L (22-32); Calcium 9.2 mg/dL (8.6-10.3); Chloride 96 mmol/L (101-111); Creatinine, Serum 0.84 mg/dL (0.51-0.95); Potassium 5.9 mmol/L (3.5-5.0); Sodium 134 mmol/L (135-145); eGFR CKD-EPI 70.2 (>60)
[2023-11-28 09:09] LABS: Albumin 2.7 g/dL (3.2-5.2); Albumin/Globulin Ratio 0.8 (1-3); Calcium 8.6 mg/dL (8.6-10.3); Creatinine, Serum 0.78 mg/dL (0.51-0.95); Globulin 3.3 g/dL (2-4); Potassium 4.4 mmol/L (3.5-5.0); Total Bilirubin 0.2 mg/dL (0.2-1.0); eGFR CKD-EPI 76.7 (>60)
[2023-11-28 13:36] LABS: Lactate Dehydrogenase, BF 319 U/L
[2023-11-28 15:22] LABS: Fluid Type, Protein, Total PLEURAL FLUID; Glucose, BF 79 mg/dL; Total Protein, BF 2.8 g/dL
[2023-11-28] MEDS ORDERED: Zosyn per Pharmacy NOTE FOLLOW UP SCH (18:00)
[2023-11-28] MEDS: ZOSYN 3.375 GM x ONE DOSE over 30 miuntes IV (18:23)
[2023-11-28] MEDS: ZOSYN 3.375 GM Q8H per EXTENDED INFUSION IV SCH (22:06)
[2023-11-29 06:48] LABS: Hematocrit 23.2 % (35-45); Hemoglobin 7.7 g/dL (11.5-14.3); Mean Corpuscular Hemoglobin 29.9 pg (27-33); Mean Corpuscular Hgb Conc 33.1 g/dL (31-36); Mean Corpuscular Volume 90.2 fL (80-97); Mean Platelet Volume 8.5 fL (7.5-11.2); Platelet Count 567 10^3/uL (150-450); Red Blood Count 2.57 10^6/uL (3.63-4.92); Red Cell Distribution Width 17.2 % (12-17); White Blood Count 10.8 10^3/uL (3.8-11.8)
[2023-11-29 07:09] LABS: Albumin 2.7 g/dL (3.2-5.2); Albumin/Globulin Ratio 0.8 (1-3); Calcium 8.5 mg/dL (8.6-10.3); Creatinine, Serum 0.8 mg/dL (0.51-0.95); Globulin 3.2 g/dL (2-4); Magnesium 1.7 mg/dL (1.9-2.7); Phosphorus 3.7 mg/dL (2.5-5.0); Potassium 4.3 mmol/L (3.5-5.0); Total Bilirubin 0.3 mg/dL (0.2-1.0); Total Protein 5.9 g/dL (6.4-8.9); eGFR CKD-EPI 74.4 (>60)
[2023-11-29 07:55] LABS: ABS Basophils 0.1 10^3/uL (0.0-0.1); ABS Eosinophils 0.1 10^3/uL (0.0-0.5); ABS Lymphocytes 0.9 10^3/uL (1.0-4.8); ABS Monocytes 2.2 10^3/uL (0.0-0.9); ABS Neutrophils 7.6 10^3/uL (1.5-7.6); ABS Nucleated RBC 0.01 10^3/ul; Eosinophil % 0.8 %; Lymphocyte % 7.9 %; Nucleated Red Blood Cells % 0.1 %/100WBC (0.0-0.8)
[2023-11-29] MEDS: Magnesium Sulfate 2 gm BAG 2 GM/50 ML BAG IVPB ONE (11:37)
[2023-12-02] MEDS: methylPREDNISolone SOD SUCC 125 mg 2 ML VIAL IV ONE (00:49)
[2023-12-02] MEDS: Furosemide 40 mg/4 ml IV VIAL IV ONE (01:04)
[2023-12-02] MEDS: Furosemide 40 mg/4 ml IV VIAL IV SLOW PU ONE (01:10)
[2023-12-02 01:14] LABS: PO2 Arterial 145 mmHg (80-100)
[2023-12-02 01:16] LABS: PCO2 Arterial 84 mmHg (35-45)
[2023-12-02 01:22] LABS: Hematocrit 22.9 % (35-45); Hemoglobin 7.4 g/dL (11.5-14.3); Mean Corpuscular Hemoglobin 29.4 pg (27-33); Mean Corpuscular Hgb Conc 32.3 g/dL (31-36); Mean Corpuscular Volume 91.1 fL (80-97); Mean Platelet Volume 8.7 fL (7.5-11.2); Platelet Count 557 10^3/uL (150-450); Red Blood Count 2.52 10^6/uL (3.63-4.92); Red Cell Distribution Width 17.4 % (12-17); White Blood Count 14.4 10^3/uL (3.8-11.8)
[2023-12-02 01:30] LABS: ABS Basophils 0.2 10^3/uL (0.0-0.1); ABS Eosinophils 0.2 10^3/uL (0.0-0.5); ABS Lymphocytes 1.8 10^3/uL (1.0-4.8); ABS Monocytes 1.6 10^3/uL (0.0-0.9); ABS Neutrophils 10.7 10^3/uL (1.5-7.6); ABS Nucleated RBC 0.03 10^3/ul; Eosinophil % 1.3 %; Lymphocyte % 12.4 %; Nucleated Red Blood Cells % 0.2 %/100WBC (0.0-0.8)
[2023-12-02 01:48] LABS: Albumin 2.9 g/dL (3.2-5.2); Albumin/Globulin Ratio 0.8 (1-3); Calcium 8.5 mg/dL (8.6-10.3); Creatinine, Serum 0.78 mg/dL (0.51-0.95); Globulin 3.6 g/dL (2-4); Magnesium 1.8 mg/dL (1.9-2.7); Potassium 4.7 mmol/L (3.5-5.0); Total Bilirubin 0.3 mg/dL (0.2-1.0); Total Protein 6.5 g/dL (6.4-8.9); eGFR CKD-EPI 76.7 (>60)
[2023-12-02] MEDS: Magnesium Sulfate 2 gm BAG 2 GM/50 ML BAG IVPB ONE (02:01)
[2023-12-02] MEDS: Albuterol/Ipratropium NEB.SOL (2.5/0.5 MG) 3 ML NEB.SOLN INH SCH (02:29)
[2023-12-02 02:36] LABS: PCO2 Arterial 68 mmHg (35-45); PO2 Arterial 89 mmHg (80-100)
[2023-12-02 02:47] LABS: High Sensitivity Troponin 1 Hr 30 pg/mL (<15)
[2023-12-02 05:37] LABS: ABS Lymphocytes 0.3 10^3/uL (1.0-4.8); ABS Monocytes 0.1 10^3/uL (0.0-0.9); ABS Neutrophils 8.5 10^3/uL (1.5-7.6); ABS Nucleated RBC 0.01 10^3/ul; Eosinophil % 0.1 %; Hematocrit 23.5 % (35-45); Hemoglobin 7.6 g/dL (11.5-14.3); Lymphocyte % 3.1 %; Mean Corpuscular Hemoglobin 29.4 pg (27-33); Mean Corpuscular Hgb Conc 32.4 g/dL (31-36); Mean Corpuscular Volume 90.8 fL (80-97); Mean Platelet Volume 8.7 fL (7.5-11.2); Nucleated Red Blood Cells % 0.1 %/100WBC (0.0-0.8); Platelet Count 479 10^3/uL (150-450); Red Blood Count 2.59 10^6/uL (3.63-4.92); Red Cell Distribution Width 17.1 % (12-17); White Blood Count 8.9 10^3/uL (3.8-11.8)
[2023-12-02 06:29] LABS: CRP High Sensitivity 49.98 mg/L (<2.00); Calcium 8.7 mg/dL (8.6-10.3); Creatinine, Serum 0.8 mg/dL (0.51-0.95); Magnesium 2.4 mg/dL (1.9-2.7); Phosphorus 3.5 mg/dL (2.5-5.0); Potassium 4.4 mmol/L (3.5-5.0); eGFR CKD-EPI 74.4 (>60)
[2023-12-02] MEDS: methylPREDNISolone SOD SUCC 40 mg/ml 1 ml VIAL IV SCH (09:36)
[2023-12-02 11:04] LABS: PCO2 Arterial 59 mmHg (35-45); PO2 Arterial 101 mmHg (80-100)
[2023-12-03 06:19] LABS: ABS Basophils 0.1 10^3/uL (0.0-0.1); ABS Lymphocytes 0.6 10^3/uL (1.0-4.8); ABS Monocytes 1.2 10^3/uL (0.0-0.9); ABS Neutrophils 4.2 10^3/uL (1.5-7.6); Hematocrit 20.1 % (35-45); Hemoglobin 6.6 g/dL (11.5-14.3); Lymphocyte % 9.5 %; Mean Corpuscular Hemoglobin 29.4 pg (27-33); Mean Corpuscular Hgb Conc 32.6 g/dL (31-36); Mean Corpuscular Volume 90.2 fL (80-97); Mean Platelet Volume 8.9 fL (7.5-11.2); Nucleated Red Blood Cells % 0.1 %/100WBC (0.0-0.8); Platelet Count 385 10^3/uL (150-450); Red Blood Count 2.23 10^6/uL (3.63-4.92); Red Cell Distribution Width 16.8 % (12-17); White Blood Count 5.9 10^3/uL (3.8-11.8)
[2023-12-03 07:25] LABS: Calcium 8.5 mg/dL (8.6-10.3); Creatinine, Serum 0.97 mg/dL (0.51-0.95); Potassium 3.8 mmol/L (3.5-5.0); eGFR CKD-EPI 59.1 (>60)
[2023-12-03 12:59] LABS: Hematocrit 21.4 % (35-45)
[2023-12-04 04:46] LABS: Hematocrit 20.6 % (35-45); Hemoglobin 6.8 g/dL (11.5-14.3); Mean Corpuscular Hemoglobin 29.7 pg (27-33); Mean Corpuscular Volume 89.8 fL (80-97); Mean Platelet Volume 8.9 fL (7.5-11.2); Platelet Count 353 10^3/uL (150-450); Red Blood Count 2.29 10^6/uL (3.63-4.92); Red Cell Distribution Width 16.9 % (12-17); White Blood Count 5.6 10^3/uL (3.8-11.8)
[2023-12-04 05:05] LABS: ABS Lymphocytes 0.4 10^3/uL (1.0-4.8); ABS Monocytes 0.3 10^3/uL (0.0-0.9); ABS Neutrophils 4.8 10^3/uL (1.5-7.6); ABS Nucleated RBC 0.01 10^3/ul; Eosinophil % 0.5 %; Lymphocyte % 7.8 %; Nucleated Red Blood Cells % 0.2 %/100WBC (0.0-0.8)
[2023-12-04 05:08] LABS: Calcium 8.3 mg/dL (8.6-10.3); Creatinine, Serum 0.95 mg/dL (0.51-0.95); Magnesium 1.8 mg/dL (1.9-2.7); Phosphorus 2.7 mg/dL (2.5-5.0); Potassium 3.8 mmol/L (3.5-5.0); eGFR CKD-EPI 60.6 (>60)
[2023-12-04 07:34] LABS: Hematocrit 21.2 % (35-45)
[2023-12-04] MEDS: Magnesium Sulfate 2 gm BAG 2 GM/50 ML BAG IVPB ONE (08:24)
[2023-12-05 06:45] LABS: Hematocrit 24.2 % (35-45); Hemoglobin 7.8 g/dL (11.5-14.3); Mean Corpuscular Hgb Conc 32.2 g/dL (31-36); Mean Corpuscular Volume 90.1 fL (80-97); Mean Platelet Volume 9.9 fL (7.5-11.2); Platelet Count 414 10^3/uL (150-450); Red Blood Count 2.69 10^6/uL (3.63-4.92); Red Cell Distribution Width 17.3 % (12-17); White Blood Count 11.4 10^3/uL (3.8-11.8)
[2023-12-05 07:11] LABS: Calcium 8.8 mg/dL (8.6-10.3); Creatinine, Serum 0.81 mg/dL (0.51-0.95); Magnesium 2.1 mg/dL (1.9-2.7); Phosphorus 2.6 mg/dL (2.5-5.0); Potassium 4.1 mmol/L (3.5-5.0); eGFR CKD-EPI 73.3 (>60)
[2023-12-05 08:32] LABS: ABS Basophils 0.1 10^3/uL (0.0-0.1); ABS Monocytes 1.1 10^3/uL (0.0-0.9); ABS Neutrophils 9.3 10^3/uL (1.5-7.6); ABS Nucleated RBC 0.05 10^3/ul; Anisocytosis 1+; Eosinophil % 0.1 %; Hypochromasia 1+; Lymphocyte % 8.6 %; Nucleated Red Blood Cells % 0.4 %/100WBC (0.0-0.8); Polychromasia 1+
[2023-12-05] MEDS: Albuterol/Ipratropium NEB.SOL (2.5/0.5 MG) 3 ML NEB.SOLN INH PRN (10:04)
[2023-12-05] MEDS: methylPREDNISolone SOD SUCC 40 mg/ml 1 ml VIAL IV SCH (20:12)
[2023-12-07] MEDS: hydrALAZINE 20 mg/ml 1 ML Vial IV IV SLOW PU PRN (00:39)
[2023-12-07 05:21] LABS: Urine Appearance Clear; Urine Bilirubin Negative (Negative); Urine Blood Negative (Negative); Urine Color Colorless; Urine Glucose 4+ (>=1000 mg/dL) (Negative); Urine Ketones Negative (Negative); Urine Nitrite Negative (Negative); Urine Protein Trace (Negative); Urine Specific Gravity 1.012 (1.002-1.030); Urine Urobilinogen Negative (Negative)
[2023-12-07] MEDS: Ferric Gluconate IV 125 MG in NS 0.9% 100 ml BAG 100 ML IVPB ONE (13:45)
[2023-12-08] MEDS: methylPREDNISolone SOD SUCC 40 mg/ml 1 ml VIAL IV SCH (09:12)
[2023-12-10 06:28] LABS: Hematocrit 22.9 % (35-45); Hemoglobin 7.3 g/dL (11.5-14.3); Mean Corpuscular Hemoglobin 29.1 pg (27-33); Mean Corpuscular Volume 91.1 fL (80-97); Mean Platelet Volume 9.1 fL (7.5-11.2); Platelet Count 265 10^3/uL (150-450); Red Blood Count 2.52 10^6/uL (3.63-4.92); Red Cell Distribution Width 17.5 % (12-17); White Blood Count 14.8 10^3/uL (3.8-11.8)
[2023-12-10 06:51] LABS: Albumin 2.9 g/dL (3.2-5.2); Calcium 8.3 mg/dL (8.6-10.3); Creatinine, Serum 0.82 mg/dL (0.51-0.95); Globulin 2.8 g/dL (2-4); Magnesium 1.7 mg/dL (1.9-2.7); Potassium 3.6 mmol/L (3.5-5.0); Total Bilirubin 0.3 mg/dL (0.2-1.0); Total Protein 5.7 g/dL (6.4-8.9); eGFR CKD-EPI 72.3 (>60)
[2023-12-10 07:24] LABS: ABS Eosinophils 0.1 10^3/uL (0.0-0.5); ABS Lymphocytes 1.3 10^3/uL (1.0-4.8); ABS Monocytes 2.5 10^3/uL (0.0-0.9); ABS Neutrophils 10.9 10^3/uL (1.5-7.6); ABS Nucleated RBC 0.07 10^3/ul; Anisocytosis 1+; Eosinophil % 0.5 %; Nucleated Red Blood Cells % 0.5 %/100WBC (0.0-0.8); Polychromasia 1+
[2023-12-10] MEDS: Furosemide 40 mg/4 ml IV VIAL IV SLOW PU ONE (12:06)
[2023-12-11 06:24] LABS: Hematocrit 23.3 % (35-45); Hemoglobin 7.5 g/dL (11.5-14.3); Mean Corpuscular Hemoglobin 29.4 pg (27-33); Mean Corpuscular Hgb Conc 32.2 g/dL (31-36); Mean Corpuscular Volume 91.3 fL (80-97); Mean Platelet Volume 9.5 fL (7.5-11.2); Platelet Count 273 10^3/uL (150-450); Red Blood Count 2.55 10^6/uL (3.63-4.92); Red Cell Distribution Width 17.5 % (12-17); White Blood Count 16.4 10^3/uL (3.8-11.8)
[2023-12-11 07:43] LABS: Calcium 8.5 mg/dL (8.6-10.3); Creatinine, Serum 0.85 mg/dL (0.51-0.95); Potassium 3.6 mmol/L (3.5-5.0); eGFR CKD-EPI 69.2 (>60)
[2023-12-11 08:14] LABS: C Reactive Protein 10.21 mg/L (<8.01)
[2023-12-11] MEDS: methylPREDNISolone SOD SUCC 40 mg/ml 1 ml VIAL IV SCH (08:47)
[2023-12-11 10:07] VITALS: BP 109/49
[2023-12-11] MEDS ORDERED: Senna TAB 8.6 mg TAB PO PRN (12:13)
[2023-12-12] MEDS: Morphine ORAL CONCENTRATE 5 MG/0.25 ML ORAL.SYRIN SL PRN (06:09)
[2023-12-12] MEDS: methylPREDNISolone SOD SUCC 40 mg/ml 1 ml VIAL IV SCH (11:05)
== END 2023-12-13 11:50 | disposition hospice, home (50) | DRG 853 ==
LOC: ED → EDHOLD 06:10 → SUATTDRO 06:10 → EDHOLD 06:27 → AA 08:00 → ICU 11:11 → SSU 11-19 20:53 → MED 11-21 19:46 → ICU 11-26 09:29 → MEDTELE 11-29 02:07 → ICU 12-02 01:07 → SSU 12-04 17:15 → MEDTELE 12-05 21:30
PROVIDERS: ADMIT Surgery Surgical Critical Care; ATTEND Student in an Organized Health Care Education/Training Program